=== PATIENT | male | born 1985 ===

== ENCOUNTER 2018-05-01 22:04 | Emergency (ER) | payer SELFPAY ==
[~2018-05-01] VITALS: Ht 177.8 cm; Wt 77.3 kg
[2018-05-01 22:13] VITALS: Ht 177.8 cm; Wt 77.3 kg
[2018-05-01 23:40] VITALS: BP 114/76
== END 2018-05-01 23:40 | disposition home or self-care (01) ==
LOC: D.ER 22:04
DX: F41.1 Generalized anxiety disorder (principal)